=== PATIENT | male | born 1985 | race Caucasian/White ===

== ENCOUNTER 2020-11-04 12:26 | Emergency (ER) | payer OTHER ==
[~2020-11-04] VITALS: Ht 177.8 cm; Wt 81.8 kg
[2020-11-04] MEDS ORDERED: KEFLEX250 MG PO (13:05)
[2020-11-04 13:24] LABS: HEMATOCRIT 40.3 % (39.0-50.0); HEMOGLOBIN 13.2 g/dl (14.0-18.0); IMMATURE GRANULOCYTES 0.3 % (0.0-5.0); MEAN CELL VOLUME 90.2 fL CALC (80.0-100.0); MEAN CORPUSCULAR HGB 29.5 pG CALC (26.0-32.0); MEAN CORPUSCULAR HGB CONC 32.8 g/dL CAL (32.0-36.0); NEUT# 4.92 thou/uL (1.82-7.42); RED BLOOD COUNT 4.47 mill/uL (4.70-6.10); RED CELL DISTRI WIDTH 12.6 % (11.5-15.5)
[2020-11-04 13:34] LABS: ALBUMIN 4.3 g/dL (3.2-5.0); ALKALINE PHOSPHATASE 59 u/l (38-126); ANION GAP 12 (6-22 (CALC)); BILIRUBIN, TOTAL 0.7 mg/dL (0.0-1.4); BUN 9 mg/dL (9-20); BUN/CREATININE RATIO 12 (12-20 (CALC)); CARBON DIOXIDE 30 mmol/l (22-30); CHLORIDE 102 mmol/l (95-108); CREATININE 0.8 mg/dL (0.7-1.3); GFR > 60 ML/MIN (>=60 (CALC)); GFR FOR AFR.AMER. > 60 ML/MIN (>=60 (CALC)); POTASSIUM 4.1 mmol/l (3.5-5.1); SGOT/AST 32 u/l (17-59); SODIUM 139 mmol/l (137-146); TOTAL PROTEIN 7.6 g/dL (6.3-8.2)
[2020-11-04] MEDS ORDERED: VANCOMYCIN HCL IV (14:51)
[2020-11-04] MEDS ORDERED: ROCEPHIN 1 GM1 GM IV (14:52)
[2020-11-04 15:35] VITALS: BP 128/72
== END 2020-11-04 15:56 | DRG 603 ==
LOC: ED 12:26
DX: L02.413 Cutaneous abscess of right upper limb (principal); L03.113 Cellulitis of right upper limb

== ENCOUNTER 2021-02-06 12:39 | Emergency (ER) | payer OTHER ==
[~2021-02-06] VITALS: Ht 177.8 cm; Wt 73.0 kg
[~2021-02-06 12:39] MED LIST: KEFLEX250 MG PO; ROCEPHIN 1 GM1 GM IV; VANCOMYCIN HCL IV
[2021-02-06] MEDS ORDERED: BACTRIM DS1 TAB PO (13:51)
[2021-02-06] MEDS ORDERED: OMNI-PAC300 MG PO (13:51)
[2021-02-06 13:56] VITALS: BP 139/87
== END 2021-02-06 14:14 | disposition home or self-care (01) | DRG 603 ==
LOC: ED 12:39
PROC: 0H96XZZ Drainage of Back Skin, External Approach (ICD-10-PCS; principal; 2021-02-06)
DX: L02.212 Cutaneous abscess of back [any part, except buttock and flank] (principal); L72.9 Follicular cyst of the skin and subcutaneous tissue, unspecified; B95.62 Methicillin resistant Staphylococcus aureus infection as the cause of diseases classified elsewhere; B19.20 Unspecified viral hepatitis C without hepatic coma